=== PATIENT | female | born 1935 | race Two or more races ===

== ENCOUNTER 2019-06-26 11:17 | Emergency (ER) | payer OTHER ==
[~2019-06-26] VITALS: Ht 154.9 cm; Wt 601.0 kg
[~2019-06-26 11:17] MED LIST: AMOX1TAB12 PO; CRESTOR5 MG PO; EVISTA60 MG PO; FAMVIR500 MG PO; PROTONIX40 MG PO; TRAMADOL HCL-AP1 TAB PO; TUSSI-PRES LIQ120 ML PO
[2019-06-26] MEDS ORDERED: RAZADYNE ER16 MG PO (11:51)
[2019-06-26] MEDS ORDERED: ASPIR 8181 MG PO (11:52)
== END 2019-06-26 14:53 | disposition home or self-care (01) ==
LOC: ER 11:17
DX: S01.82XA Laceration with foreign body of other part of head, initial encounter (principal); W45.8XXA Other foreign body or object entering through skin, initial encounter; Y93.89 Activity, other specified; Y92.198 Other place in other specified residential institution as the place of occurrence of the external cause; Y99.8 Other external cause status

== ENCOUNTER 2019-07-14 16:42 | Emergency (ER) | payer OTHER ==
[~2019-07-14] VITALS: Ht 157.5 cm; Wt 54.4 kg
[~2019-07-14 16:42] MED LIST changes: +ASPIR 8181 MG PO; +RAZADYNE ER16 MG PO
== END 2019-07-14 17:57 | disposition home or self-care (01) ==
LOC: ER 16:42
DX: Z48.02 Encounter for removal of sutures (principal)

== ENCOUNTER 2022-02-06 15:10 | Emergency (ER) | payer OTHER ==
[~2022-02-06] VITALS: Ht 157.5 cm; Wt 54.4 kg
[2022-02-06] MEDS ORDERED: CHILDREN'S ASPI81 MG PO (15:32)
[2022-02-06] MEDS ORDERED: MEMANTINE HCL1 EACH PO (15:32)
[2022-02-06] MEDS ORDERED: REMINYL8 MG PO (15:32)
== END 2022-02-06 20:44 | disposition home or self-care (01) ==
LOC: ER 15:10
DX: R13.10 Dysphagia, unspecified (principal); Z91.013 Allergy to seafood; Z91.018 Allergy to other foods; Z20.822 Contact with and (suspected) exposure to COVID-19

== ENCOUNTER 2022-09-12 14:26 | Inpatient (IN) | payer OTHER ==
[~2022-09-12] VITALS: Ht 160 cm; Wt 52.2 kg
[~2022-09-12 14:26] MED LIST changes: +CHILDREN'S ASPI81 MG PO; +MEMANTINE HCL1 EACH PO; +REMINYL8 MG PO
--- NOTE | 2022-09-12 15:30 | NUR ---
SE RECIBE PTE ALERTA NO ORIENTADA EN AMBULANCIA EN COMPANIA DE PARAMEDICOS Y FAMILIAR.FAMILIAR REFIERE PTE PRESENTA DIFICULTAD RESPIRATORIA DESDE HACE VARIAS SEMANAS LA CUAL FUE EVALUADA POR SANTILLAN MEDICO Y LA REFIERE A LA ERIC DE EMERGENCIAS.SE CONECTA A MONITOR CARDIACO HR-80(SINUSAL).SE CORTEZ EKG SE PRESENTA A .SE KOLBY MEUSTRAS DE LABORATORIO USANDO MEDIDAS ASEPTICAS.SE COLOCA SONDA URINARIA A GRAVEDAD USANDO MEDIDAS ASEPTICAS.
--- NOTE | 2022-09-12 23:48 | NUR ---
SE RECIBE FEMINA ALERTA Y DESORIENTADA DEL TURNO ANTERIOR CONECTADA A MONITOR CARDIACO Y OXIMETRIA DE PULSO. PTE CON CANULA NASAL A 2 L/MIN. EXTREMIDADES SUPERIORES SE OBSERVAN SIN EDEMA. S/L EN MANO DERECHA #18. S/L EN MANO IZQUIERDA #18 Y VENOPUNCION EN MANO DERECHA #20 DE AMBULANCIA. ABDOMEN DEPRESIBLE AL TACTO CON PERISTALSIS PRESENTE. SE OBSERVA PTE CON PEG CON VENDAJE LIMPIO Y SECO. SE REALIZA IRRIGACION DEL TUBO CON 20ML DE AGUA ESTERIL Y EL MISMO ESTA PATENTE. ROLDAN EN POSICION A GARVEDAD. EXTREMIDADES INFERIORES SE OBSERVAN SIN EDEMA. SE MANTIENE PTE BAJO OBSERVACION POR CAMBIOS SIGNIFICATIVOS. SE CONSULTA CON DR VARELA ESTROSALINA DE LA PTE.
--- NOTE | 2022-09-13 00:04 | NUR ---
SE NOTIFICA A PERSONAL DE TERAPIA RESPIRATORIA TERAPIAS PENDIENTES.
--- NOTE | 2022-09-13 01:36 | NUR ---
PERSONAL DE TERAPIA RESPIRATORIA ADMINISTRA TERAPIA A PTE.
--- NOTE | 2022-09-13 07:16 | NUR ---
07:00 SE RECIBE PTE ALERTA Y DESORIENTADO AL MOMENTO CONECTADO A MONITOR CARIDIACO Y OXIMETRIA CON BARANDAS ELEVADAS Y CANULA A 2 LITROS LUCHO ORDEN MEDICA. PTE AL MOMENTO CON VENOPUNCION BRAZO IZQ CCON ANGIO #20 SE OBSERVA AREA YSABEL EDEMADS Y ENROJECIMIENTO CON DRIP 09.NSS 1,000ML @ 60ML/HR CON EXTREMIDADES SUPERIORES YSABEL EDEMAS Y LACERACION. PTE AL MOMENTO CON GASTRONOMIA LIMPIA Y PATENTE CON ULCERA DEPRECION AREA SACRAL. SE OPBSERVA EXTREMIDADES DE LOS PIES YSABEL EDEMAS Y LACERACION CON ROLDAN PATENTE ELIMINADO COLOR AMARILLO INTENSO. SE IBIS RENNY PREVENTIVA POR ALGUN CAMBIO SIGNIFICATIVO.
[2022-09-17] MEDS ORDERED: OMEPRAZOLE40 MG (15:37)
[2022-09-17] MEDS ORDERED: MEMANTINE HCL10 MG (15:37)
[2022-09-17] MEDS ORDERED: ST. JOSEPH ASPI81 M2 (15:37)
== END 2022-10-02 18:21 | disposition home or self-care (01) | DRG 152 ==
LOC: ER 14:26 → MEDJ 09-13 13:03 → EDBD 09-13 13:03 → MEDJ 09-13 15:26
PROVIDERS: ADMIT Internal Medicine; ATTEND Internal Medicine
PROC: 4A12X4Z Monitoring of Cardiac Electrical Activity, External Approach (ICD-10-PCS; 2022-09-12)
PROC: 3E0F7SF Introduction of Other Gas into Respiratory Tract, Via Natural or Artificial Opening (ICD-10-PCS; 2022-09-12)
PROC: BB24ZZZ Computerized Tomography (CT Scan) of Bilateral Lungs (ICD-10-PCS; principal; 2022-09-13)
PROC: 3E0F7GC Introduction of Other Therapeutic Substance into Respiratory Tract, Via Natural or Artificial Opening (ICD-10-PCS; 2022-09-13)
PROC: 30233N1 Transfusion of Nonautologous Red Blood Cells into Peripheral Vein, Percutaneous Approach (ICD-10-PCS; 2022-09-19)
PROC: 8E0ZXY6 Isolation (ICD-10-PCS; 2022-09-24)
DX: J06.9 Acute upper respiratory infection, unspecified (principal); J16.8 Pneumonia due to other specified infectious organisms; J69.0 Pneumonitis due to inhalation of food and vomit; J90 Pleural effusion, not elsewhere classified; E87.1 Hypo-osmolality and hyponatremia; J98.11 Atelectasis; E86.0 Dehydration; D53.0 Protein deficiency anemia; D63.8 Anemia in other chronic diseases classified elsewhere; G30.8 Other Alzheimer's disease; F02.C0 Dementia in other diseases classified elsewhere, severe, without behavioral disturbance, psychotic disturbance, mood disturbance, and anxiety; Z93.1 Gastrostomy status; Z74.01 Bed confinement status; B96.5 Pseudomonas (aeruginosa) (mallei) (pseudomallei) as the cause of diseases classified elsewhere; B96.1 Klebsiella pneumoniae [K. pneumoniae] as the cause of diseases classified elsewhere